=== PATIENT | female | born 1960 | race Caucasian/White ===

== ENCOUNTER → 2019-12-19 09:20 | Outpatient (CLI) | payer OTHER, SELFPAY ==
[2019-12-19 11:19] LABS: Coronavirus 19 IgG Antibody Negative (Negative); Coronavirus 19 IgM Antibody Negative (Negative)
== END ==
PROVIDERS: Visit Provider Internal Medicine Gastroenterology
DX: Z01.818 Encounter for other preprocedural examination (principal); Z13.810 Encounter for screening for upper gastrointestinal disorder
CPT/HCPCS: 36415; 86328

== ENCOUNTER 2019-12-21 11:15 | Day surgery (SDC) | payer OTHER, SELFPAY ==
[2019-12-17 14:02] VITALS: BMI 38.9
[2019-12-21] VITALS (7 sets, daily range): BP systolic 130–141; BP diastolic 72–102; PULSE 63–87; RESP 16–18; TEMP 36.3; O2SAT 95–100
--- NOTE | 2019-12-21 12:55 | P.PN_ITS ---
[facility] Anesthesia Checklist - Patient Identification Patient Identification: Arm Band - Structural Data Admitted From: Home Planned Operative Procedure/s: egd Consent for Planned Operative Procedure(s) Verified: Yes Verified Documents: Surgical Consent, History and Physical - NPO Status Verified Time NPO: 00:00 - Additional verifications Anesthesia Reactions: No - Airway Assessment C-Spine Mobility Assessed: Yes (mp2) TMJ Mobility Assessed: Yes Dentition: Good Dentition - Neurological Assessment Level of Consciousness: Awake, Alert - Anesthesia Plan Anesthesia Risk discussed: Yes Anesthesia Plan: Verified ASA Class: III Anesthesia Type: MAC [facility] History I have reviewed the patient's past medical history: Yes Medical History: Reports:: Anxiety, Asthma, Gastroesophageal Reflux Disease(GERD), Hypertension Denies:: Cancer, Diabetes Mellitus Type 1, Diabetes Mellitus Type 2, Internal Pacemaker, MRSA, Seizures *Have you ever received a pneumonia vaccine?: No *Have you received a flu vaccine this season?: No Other Medical History: Reports: Hypothyroidism Anesthesia experience/problems:: nac Other Surgeries: Yes: Colonoscopy, Hysterectomy-Total, Thyroidectomy, Tubal Ligation. No: Pacemaker Amputation: No Fractures: No - *Social History Smoking Status: Former smoker Alcohol Intake: never Substance Use Type: denies use *Occupational Status:: employed Housing: house *Travel in the last 8 weeks: None Family Hx:: No significant family history
--- NOTE | 2019-12-21 13:09 | HMH.PROC ---
[facility] Procedure Note Procedure Note:: Upper Endoscopy Procedure Report: Esophagogastroduodenoscopy with cold biopsies and TTS balloon dilation Endoscopost: Maldonado Zavala II, MD Referring Physician: MAUDE Delcid ([facility]) Date of Procedure: December 21, 2019 Equipment: Olympus GIF 180 standard upper endoscope Sedation: MAC sedation Indications: Mrs. Valdes is a 59-year-old female with dyspepsia. She reports right upper quadrant abdominal pain postprandially for the last 4 to 6 months. This does occur with fatty foods and tomato-based foods. She reports not having any recent ultrasound or gallbladder testing. She did have an upper endoscopy 5 years ago (Dr. Jose Preciado in [place]). The patient does report some epigastric discomfort, bloating, gassiness, belching, nausea and early satiety. She also has heartburn and reflux which is improved with omeprazole. She also reports some dysphagia and globus sensation. She reports chronic alternating IBS with both constipation and diarrhea. She cannot lie on her right side because of her symptoms. The patient's recent lab work showed normal liver chemistries (ALT 15, AST 19 and alkaline phosphatase 92). She did have normal hemoglobin 11.7 and hematocrit 38.8. Procedure: Prior to the procedure, a history and physical exam was performed, and patient's medications and allergies were reviewed. The risks, benefits and alternatives of the sedation and procedure were discussed with the patient. All questions were answered and informed consent was obtained. The patient was brought to the procedure room. Patient identification and proposed procedure were verified by the physician and the nurse. The patient was placed in a left lateral decubitus position and the scope was passed under direct vision. Throughout the procedure, the patient's blood pressure, pulse, and oxygen saturations were monitored continuously. The upper GI endoscopy was accomplished without difficulty. The patient tolerated the procedure well. Findings: The scope was passed directly into the upper esophagus and advanced to the third portion of the duodenum. The post bulbar duodenum and duodenal bulb were normal with normal mucosa and conniventes. There was no scalloping. The scope was withdrawn through a normal duodenal bulb and pylorus into the stomach. There was moderate bile reflux with linear reactive gastropathy of the antrum. There was mild chronic gastritis of the body and fundus of the stomach. Biopsies were taken from the antrum as well as the lesser curvature of the stomach to rule out H. pylori. Upon retroflexion there was a moderate to large hiatal hernia. The diaphragmatic hiatus was at 40 cm from the incisors. The gastroesophageal junction and Z-line were at 33 cm from the incisors leaving a 7 cm hiatal hernia. The squamocolumnar junction was serrated but there was no obvious evidence of reflux esophagitis or Schatzki's ring. Biopsies were taken at the GE junction to rule out intestinal metaplasia. The entire esophagus was dilated to 60 Sami/20 mm with a TTS hydrostatic balloon. There was some resistance at the cricopharyngeus. There were tertiary contractions and evidence of moderate esophageal dysmotility. The remainder of the esophageal mucosa was normal. Impression: 1. Large hiatal hernia (7 cm) with paraesophageal component 2. Nonerosive GERD with moderate esophageal dysmotility and cricopharyngeal spasm 3. Bile reflux with linear reactive gastropathy and mild chronic gastritis Plan: I will follow-up the biopsies. The patient does have functional dyspepsia and functional bowel disease (IBS). We will discuss additional dietary measures and treatment options. I would recommend ultrasound of the gallbladder as well. Based upon the size of her hiatal hernia. We will need to decide whether hernia repair is warranted even with her esophageal dysmotility. Some o
== END 2019-12-21 14:17 | disposition home or self-care (01) ==
LOC: OUTP 11:20
PROVIDERS: PCP Nurse Practitioner Family; Visit Provider Internal Medicine Gastroenterology
PROC: 0DJ08ZZ Inspection of Upper Intestinal Tract, Via Natural or Artificial Opening Endoscopic (ICD-10-PCS; CPT 43235; principal; 2019-12-21 12:30)
DX: K58.2 Mixed irritable bowel syndrome (principal); K44.0 Diaphragmatic hernia with obstruction, without gangrene; K21.9 Gastro-esophageal reflux disease without esophagitis; K22.4 Dyskinesia of esophagus; J39.2 Other diseases of pharynx; K31.9 Disease of stomach and duodenum, unspecified; K29.50 Unspecified chronic gastritis without bleeding; F41.9 Anxiety disorder, unspecified; J45.909 Unspecified asthma, uncomplicated; I10 Essential (primary) hypertension; E89.0 Postprocedural hypothyroidism; Z79.899 Other long term (current) drug therapy
CPT/HCPCS: 43239; 43249; C1726

== ENCOUNTER → 2020-02-03 12:22 | Outpatient (CLI) | payer OTHER, SELFPAY ==
[2020-02-03 14:13] LABS: Coronavirus 19 IgG Antibody Negative (Negative); Coronavirus 19 IgM Antibody Negative (Negative)
== END ==
PROVIDERS: Visit Provider Internal Medicine Gastroenterology
DX: Z01.818 Encounter for other preprocedural examination (principal); Z03.818 Encounter for observation for suspected exposure to other biological agents ruled out; Z12.11 Encounter for screening for malignant neoplasm of colon; R10.11 Right upper quadrant pain
CPT/HCPCS: 86328

== ENCOUNTER 2020-02-05 07:24 | Day surgery (SDC) | payer OTHER, SELFPAY ==
[2020-02-02 13:19] VITALS: BMI 38.9
[2020-02-05] VITALS (7 sets, daily range): BP systolic 108–120; BP diastolic 57–70; PULSE 66–76; RESP 18; TEMP 36.4–36.7; O2SAT 96–100
--- NOTE | 2020-02-05 08:27 | HMH.ANESCL ---
[facility] Anesthesia Checklist - Structural Data Admitted From: Home Planned Operative Procedure/s: colonoscopy Consent for Planned Operative Procedure(s) Verified: Yes - Additional verifications Anesthesia Reactions: No - Airway Assessment C-Spine Mobility Assessed: Yes TMJ Mobility Assessed: Yes Dentition: Good Dentition - Neurological Assessment Level of Consciousness: Awake, Alert, Appropriate - Anesthesia Plan Anesthesia Risk discussed: Yes Anesthesia Plan: Verified ASA Class: III Anesthesia Type: MAC [facility] History I have reviewed the patient's past medical history: Yes Medical History: Reports:: Anxiety, Asthma, Gastroesophageal Reflux Disease(GERD), Hypertension Denies:: Cancer, Diabetes Mellitus Type 1, Diabetes Mellitus Type 2, Internal Pacemaker, MRSA, Seizures *Have you ever received a pneumonia vaccine?: No *Have you received a flu vaccine this season?: No Other Medical History: Reports: Hypothyroidism Anesthesia experience/problems:: none Other Surgeries: Yes: Colonoscopy, Hysterectomy-Total, Thyroidectomy, Tubal Ligation. No: Pacemaker Amputation: No Fractures: No - *Social History Last grade of school completed: Advanced degree Smoking Status: Never smoker Alcohol Intake: never Substance Use Type: denies use *Occupational Status:: employed Housing: house Household Members: spouse *Travel in the last 8 weeks: None - Psychiatric History Pschychiatric History:: Reports:: Anxiety Family Hx:: No significant family history
--- NOTE | 2020-02-05 08:52 | HMH.PROC ---
[facility] Procedure Note Procedure Note:: Colonoscopy Procedure Report: Colonoscopy Endoscopist: Maldonado Zavala II, MD Referring physician: MAUDE Delcid Date of Procedure: February 05, 2020 Equipment: Olympus 180 variable stiffness pediatric colonoscope Sedation: MAC sedation Indication: Mrs. Valdes is a 59-year-old female with right upper abdominal pain and discomfort after meals for more than 6 months. She had normal liver chemistries and her right upper quadrant abdominal ultrasound on December 22, 2019 did show some steatosis but otherwise a normal gallbladder without gallstones. There was no evidence of gallbladder wall thickening or pericholecystic fluid. The patient did have an EGD on 12/21/2019 and this did show a large hiatal hernia (7 cm) with paraesophageal component. She also had nonerosive GERD. I did recommend that she begin MiraLAX plus Konsyl daily as well as dietary measures. She is somewhat improved. She reports no rectal bleeding, weight loss or family history of colon cancer. Her last colonoscopy was in [place] (Dr. Jose Preciado) 5 years ago and was normal. Procedure: Prior to the procedure, a history and physical exam was performed, and patient's medications and allergies were reviewed. The risks, benefits and alternatives of the sedation and procedure were discussed with the patient. All questions were answered and informed consent was obtained. The patient was brought to the procedure room. Patient identification and proposed procedure were verified by the physician and the nurse. The patient was placed in a left lateral decubitus position and the scope was passed under direct vision. Throughout the procedure, the patient's blood pressure, pulse, and oxygen saturations were monitored continuously. The colonoscopy was accomplished without difficulty. The patient tolerated the procedure well. Findings: On digital rectal examination there was normal rectal tone. There were no external hemorrhoids. The colonoscope was introduced through the anal canal to the rectum and advanced to the cecum. The ileocecal valve and appendiceal orifice were identified. The scope was advanced a short distance into the ileum which appeared grossly normal. The scope was then withdrawn into the colon. The cecum, ascending and transverse colon and mucosa were grossly normal. There was some angulation at the hepatic flexure suggestive of a hepatic flexure syndrome. There were scattered diverticuli throughout the descending and sigmoid colon (LEFT colon). The rectum itself was normal. Upon retroflexion within the rectum there were grade 1-2 internal hemorrhoids. The preparation was excellent throughout with Butler Preparation Score of 9. The cecal time was 12 minutes. Impression: 1. Left-sided diverticulosis 2. 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 Grade 1-2 internal hemorrhoids Plan: The patient will not require screening/surveillance colonoscopy again for 10 years by ACS guidelines. 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 This is improving. I would encourage continuation of a fiber bowel regimen (combined MiraLAX plus Konsyl) on a long-term daily maintenance basis.
== END 2020-02-05 09:50 | disposition home or self-care (01) ==
LOC: OUTP 07:25
PROVIDERS: PCP Nurse Practitioner Family; Visit Provider Internal Medicine Gastroenterology
PROC: 0DJD8ZZ Inspection of Lower Intestinal Tract, Via Natural or Artificial Opening Endoscopic (ICD-10-PCS; CPT 45378; principal; 2020-02-05 08:30)
DX: Z12.11 Encounter for screening for malignant neoplasm of colon (principal); K57.30 Diverticulosis of large intestine without perforation or abscess without bleeding; K64.0 First degree hemorrhoids; K63.9 Disease of intestine, unspecified; I10 Essential (primary) hypertension; J45.909 Unspecified asthma, uncomplicated; E89.0 Postprocedural hypothyroidism; F41.9 Anxiety disorder, unspecified; K21.9 Gastro-esophageal reflux disease without esophagitis; Z82.49 Family history of ischemic heart disease and other diseases of the circulatory system; Z83.3 Family history of diabetes mellitus; Z84.1 Family history of disorders of kidney and ureter
CPT/HCPCS: 45378